=== PATIENT | female | born 1995 | race African-American/Black ===

== ENCOUNTER 2019-01-25 01:48 | Emergency (ER) | payer SELFPAY ==
[~2019-01-25] VITALS: Ht 162.6 cm; Wt 60.0 kg
[2019-01-25 01:56] VITALS: Ht 162.6 cm; Wt 60.0 kg
[2019-01-25 04:38] VITALS: BP 120/73
== END 2019-01-25 04:41 | disposition home or self-care (01) ==
LOC: ED 01:48
DX: O23.40 Unspecified infection of urinary tract in pregnancy, unspecified trimester (principal); Z3A.00 Weeks of gestation of pregnancy not specified
CPT/HCPCS: J1885